=== PATIENT | male | born 1975 | race Caucasian/White ===

== ENCOUNTER 2025-07-17 15:37 | Emergency (ER) | payer SELFPAY ==
[~2025-07-17] VITALS: Ht 172.7 cm; Wt 68.0 kg
[2025-07-17 15:40] VITALS: BP 140/80; PULSE 116; RESP 16; TEMP 98.3; O2SAT 98
== END 2025-07-17 16:22 | disposition left against medical advice (07) ==
LOC: ER 15:37
DX: T65.91XA Toxic effect of unspecified substance, accidental (unintentional), initial encounter (principal); F23 Brief psychotic disorder; Z91.83 Wandering in diseases classified elsewhere; Y92.89 Other specified places as the place of occurrence of the external cause
CPT/HCPCS: 99283